=== PATIENT | male | born 1955 | race Caucasian/White ===

== ENCOUNTER 2016-10-12 03:45 | Emergency (ER) | payer OTHER ==
[~2016-10-12] VITALS: Ht 180.3 cm; Wt 81.0 kg
[2016-10-12 03:47] VITALS: BP 128/70; PULSE 83; RESP 16; O2SAT 99
--- NOTE | 2016-10-12 03:51 | ED.REPORT ---
HPI-Syncope Date of Service October 12, 2016 ED Provider: Giancarlo Dwyer MD A 61 year old male with a history of smoking and THC use is brought to the ED via EMS due to dizziness. The pt woke at 03:00 this morning to find that he experienced spinning dizziness when he stood, walked or leaned over. The dizziness was severe enough that the pt felt like he was going to pass out. He denies ear pain or a history of vertigo. Nursing Notes Stated Complaint: LIGHTHEADED Chief Complaint: General Complaint Nursing Notes Reviewed: Yes Allergies: Coded Allergies: No Known Allergies (Unverified , 04/30/16) Scheduled PRN Meclizine (Bonine) 25 Mg Tab.chew 25 MG PO TID PRN PRN For Dizziness General Time Seen by Provider: 03:48 Chief Complaint Other (Dizziness) Hx Obtained From: Patient, EMS Arrived By: Ambulance Onset Occurred: 46 - 59 minutes ago Symptom Duration: Intermittent Recent Healthcare: No recent hospitalization, Recent doctor visit Similar Sx Previous: No Past Medical History Past Medical History on disability for chronic pain 04/30/2016 Past Surgical History Reports: Appendectomy Smoking History Current Every Day Smoker Social History Alcohol Use: Denies alcohol use Drug Use: THC Occupation lives with girlfriend, no work or [id number]/2016, last seen 2 years ago for disability exam Ambulatory Status Cane Review of Systems Ears / Nose / Throat: Denies: Earache bilateral Respiratory: Denies: Non-productive cough, Shortness of breath Cardiovascular: Denies: Chest pain GI: Denies: Abdominal pain Musculoskeletal: Denies: Back pain Skin: Denies Rash Neurologic: Reports: Dizziness Complete sys rev & neg: except as marked. Physical Exam Initial Vital Signs Vital Signs (First) Date Time Temp Pulse Resp B/P Pulse Ox O2 Delivery O2 Flow Rate FiO2 10/12/16 03:47 37.0 83 16 128/70 99 Room Air Initial VS: Reviewed, Vital signs normal General/Constitutional: Awake, Alert Respiratory / Chest: Atraumatic, Breath sounds NL, Breath sounds = bilat, No respiratory distress Cardiovascular: Heart rate NL, Regular rhythm, Heart sounds NL Lower Extremity / Pelvis / MS: Atraumatic, Full range of motion Neurologic: Oriented X3, Speech NL, No motor deficits, No sensory deficits Head / Eyes: Atraumatic, Normocephalic, PERRL, EOMI dullness and retraction of bilateral TMs 3 to 4 beat nystagmus with rightward gaze ENT: Atraumatic, Airway patent, Mucous membranes moist Neck: Atraumatic, Supple, Full range of motion Abdomen: Atraumatic, Soft, Non-tender Back: Atraumatic, Full range of motion Skin: Atraumatic, Color NL, No rash, Warm, Dry Psychiatric: Affect NL, Mood NL Upper Extremity / MS: Atraumatic, Full range of motion Re-Eval/Medical Decision Med Decision/Clinical Course Extent 1-year-old male who has had 1-2 days gradual onset of vertigo. He feels that he is spinning. He also feels lightheaded at times but has not actually passed out. He denies recreational drugs or alcohol. He refused any evaluation involving needles. Physical exam is consistent with a viral labyrinthitis. He was given meclizine 25 mg by mouth with improvement. He was then given a second dose of meclizine and 1 mg of Ativan. He had improvement and will be discharged home to follow-up with his regular doctor. A prescription of meclizine was written. Source of Hx: Old records Re-Evaluation/Progress : Time of Eval: 05:26 Patient Status: Condition improved Re-Evaluation/Progress Note: Pt rechecked, whose condition has improved significantly. He is still experiencing some residual dizziness but was able to ambulate. The diagnosis and plan for discharge following medication treatment are discussed. The pt understands and agrees with the plan. All questions are addressed at this time. Counseled Regarding: Diagnosis, Lab results, Need for follow-up, When/why to return to ED Discharge & Departure Disposition: Home Discharge Condition All VS Reviewed: Yes Condition: Stable Referrals: [facility] [employer] Portions of this note were transcribed by Leo Howell. I, Dr. Dwyer personally performed the history, physical exam and medical decision-making; I reviewed and confirmed the accuracy of the information in the transcribed note. Signed by: Jerome Guillen, 10/12/16 and 0604. copies to: [facility] Giancarlo Dwyer MD October 12, 2016 03:50 LEO HOWELL October 12, 2016 04:00
[2016-10-12] MEDS ORDERED: LORazepam 1 mg Tablet PO ONE (05:30)
[2016-10-12] MEDS ORDERED: MECL-114 PO (06:02)
[2016-10-12 06:33] VITALS: BP 126/72; PULSE 80; RESP 16; O2SAT 100
== END 2016-10-12 06:55 | disposition home or self-care (01) ==
LOC: SED 03:45
DX: R42 Dizziness and giddiness (principal); F17.200 Nicotine dependence, unspecified, uncomplicated